=== PATIENT | male | born 1970 | race Caucasian/White ===

== ENCOUNTER 2021-01-20 08:25 | Day surgery (SDC) | payer OTHER ==
[~2021-01-20] VITALS: Ht 182.9 cm; Wt 113.0 kg
[~2021-01-20 08:25] MED LIST: ARA20T PO; ATOR40TA72 PO; BUPR150T8 PO; HYDR200T84 PO; MELO-102 PO; OMEP20CA15 PO; PRE1T PO; TADA20TA43 PO; TOCI162S; cefazolin/dext.iso 2gm/100ml 100 ML IV ONE; famotidine 20mg tablet PO ONE; ringers solution, lacted 1,000 ML IV SCH
[2021-01-20] MEDS ORDERED: fentaNYL/PF 50MCG/1 ML 2ML syringe IV PRN ×2 (09:05)
[2021-01-20] MEDS ORDERED: morphine 4 MG/ML inj SYRINge IV PRN (09:05)
[2021-01-20] MEDS ORDERED: hydrALAZINE 20mg/ml inj. IV PRN (09:05)
[2021-01-20] MEDS ORDERED: ringers solution, lacted 1,000 ML IV SCH (09:05)
[2021-01-20] MEDS ORDERED: labetalol 20mg/4ml (5mg/ml) syringe IV PRN (09:05)
[2021-01-20] MEDS ORDERED: ondansetron/PF 4mg/2ml inj IV PRN (09:05)
[2021-01-20] MEDS ORDERED: morphine 2 MG/ML inj. syringe IV PRN (09:05)
[2021-01-20 09:31] VITALS: BP 135/78
[2021-01-20] MEDS ORDERED: BUPIVAcaine/PF 2.5 mg/ml (0.25%) 30ml vial ONE (11:53)
[2021-01-20] MEDS ORDERED: fentaNYL/PF 50MCG/1 ML 2ML syringe ONE (11:59)
[2021-01-20] MEDS ORDERED: midazolam 1 mg/ML 2ml injection ONE (12:00)
[2021-01-20] MEDS ORDERED: LIDOcaine 0.5% (5mg/ml) 50ml vial ONE (12:19)
[2021-01-20] MEDS ORDERED: ketorolac trometh. 30mg/ml inj. ONE (12:21)
[2021-01-20 13:10] VITALS: BP 135/82
--- NOTE | 2021-01-20 13:10 | NUR ---
Received from OR via , accompanied by Anesthesiologist DR SULLIVAN and report given by Anesthesiolgist. AWAKENS TO VOICE. VITALS STABLE. DRESSINGS DI. HAKEEM PAIN. FINGERS WARM AND PINK.
[2021-01-20 13:20] VITALS: BP 130/94
[2021-01-20 13:30] VITALS: BP 134/92
[2021-01-20 13:40] VITALS: BP 137/96
[2021-01-20 13:50] VITALS: BP 145/89
--- NOTE | 2021-01-20 14:00 | NUR ---
AWAKE AND ORIENTED. VITALS STABLE. DRESSINGS DI. HAKEEM PAIN. HOME WITH IS SPOUSE AT THIS TIME.
== END 2021-01-20 14:00 | disposition home or self-care (01) ==
LOC: PAS 08:25
PROVIDERS: ATTEND Orthopaedic Surgery Hand Surgery
DX: D21.12 Benign neoplasm of connective and other soft tissue of left upper limb, including shoulder (principal); M70.22 Olecranon bursitis, left elbow; M06.342 Rheumatoid nodule, left hand; M06.322 Rheumatoid nodule, left elbow; M25.522 Pain in left elbow; M79.642 Pain in left hand
CPT/HCPCS: 24105; 26111; 26115; 36415; 82948; 93005; A6222; J1885; J2001; J2250; J3010; J3490; J7120; U0003; A4215; A4618; A6449